=== PATIENT | male | born 1955 | race Caucasian/White ===

== ENCOUNTER 2018-11-01 06:06 | Day surgery (SDC) | payer MEDICARE, OTHER ==
[~2018-11-01] VITALS: Ht 170.2 cm; Wt 85.9 kg
[~2018-11-01 06:06] MED LIST: ALBU90OI INH; ALLO300 PO; Altoprev20 MG PO; CENTRUM SILVER1 EAC1 PO; Cialis20 MG; FENO160; FENO160 PO; HYDACE5 PO; HYDCHL25 PO; Hytrin1 MG PO; IBUP600 PO; LOSA25; LOSARTAN-HCTZ PO; LOSHYD; LOSHYD PO; LOVA20 PO; METF500; METF500 PO; METF500C PO; NAPR500EC PO; OMEG1CAP30 PO; OMEPRAZOLE MAGN20 MG PO; PREN-16 PO; TRAM50; TRAM50 PO; UBID100 PO; Ultram50 MG PO
[2018-11-01] MEDS ORDERED: AMLO5 PO (07:11)
--- NOTE | 2018-11-01 07:26 | NUR ---
Ambulatory in Day Surgery History, Chart, Medications and Allergies reviewed before start of procedure.Patient confirms NPO status and agrees with scheduled surgery. Lungs clear T/O to Auscultation. Patient reports completing Chlorhexadine shower X2 prior to admission to hospital.Surgical site prepped with 2% Chlorhexidine cloth wipe.
--- NOTE | 2018-11-01 08:15 | NUR ---
11/01/18 0815 Maryana Mejia PT VOIDED PRIOR TO COMING TO OR
--- NOTE | 2018-11-01 18:00 | NUR ---
SHIFT SUMMARY PATIENT UP WITH PT THIS AFTERNOON AND TO CHAIR. STATES PAIN IS CONTROLLED WITH PO AND IV PAIN MED. TOLERATING PO. DRESSING D&I. CIRC CHECKS WNL. NO C/O AT THIS TIME.
--- NOTE | 2018-11-02 05:09 | NUR ---
shift summary: vss, no acute changes, no n/v, PO intake with ADA diet tolerated well. pt voided >600 ml clear yellow urine in urinal. pt reports pain down to 3-4/10 following analgesia per sep. pt ambulated in hallway >200 ft with gait belt and fww with standby assist. operative knee with full sensation, good capillary refill, dressing intact with minimal swelling. CBG at 259 at HS, medicated per sep. PT x 1, will complete PT today. Pt states his therapy literacy coach will arrive this AM
[2018-11-02 06:22] LABS: Anion Gap 6 mmol/L (6-16); BASOPHILS ABSOLUTE AUTO 0.02 K/mm3 (0.00-0.23); BASOPHILS PERCENT AUTO 0 % (0-2); Blood Urea Nitrogen 18 mg/dL (8-24); Bun/Creatinine Ratio 21.7 (12.0-20.0); CO2, Blood 29 mmol/L (21-32); Calcium, Blood 9.8 mg/dL (8.5-10.1); Chloride, Blood 105 mmol/L (98-108); Creatinine, Blood 0.83 mg/dL (0.60-1.20); EOSINOPHILS ABSOLUTE AUTO 0.02 K/mm3 (0.00-0.68); EOSINOPHILS PERCENT AUTO 0 % (0-6); Glomerular Filtration Rate >60 (60-); Glucose, Blood 138 mg/dL (70-99); Hematocrit 33.2 % (37.0-53.0); Hemoglobin 11.1 g/dL (13.5-17.5); IMMATURE GRAN ABSOLUTE AUTO 0.07 K/mm3 (0.00-0.10); IMMATURE GRAN PERCENT AUTO 1 % (0-1); LYMPHOCYTES ABSOLUTE AUTO 1.34 K/mm3 (0.84-5.20); LYMPHOCYTES PERCENT AUTO 10 % (21-46); MONOCYTES ABSOLUTE AUTO 0.97 K/mm3 (0.16-1.47); MONOCYTES PERCENT AUTO 8 % (4-13); Mean Corpuscular HGB 30.8 pg (26.0-34.0); Mean Corpuscular HGB Conc 33.4 g/dL (31.5-36.5); Mean Corpuscular Volume 92 fL (80-100); Mean Platelet Volume 9.4 fL (9.1-12.4); NEUTROPHILS ABSOLUTE AUTO 10.43 K/mm3 (1.96-9.15); NEUTROPHILS PERCENT AUTO 81 % (41-73); Platelet Count 251 K/mm3 (150-400); RDW Coefficient Variation 13.8 % (11.7-14.2); Sodium, Blood 140 mmol/L (136-145); White Blood Cell Count 12.85 K/mm3 (4.00-11.30)
[2018-11-02] MEDS ORDERED: LO-DOSE ASPIRIN81 MG PO (12:11)
[2018-11-02] MEDS ORDERED: Percocet 5-3251 EACH PO (12:14)
--- NOTE | 2018-11-02 13:40 | NUR ---
PATIENT D/C'D HOME AT THIS TIME WITH FAMILY; STATES UNDERSTANDING OF MEDS, WOUND CARE, ACTIVITY, OP PT, F/U APPT, ETC. PATIENT STATES PAIN WELL CONTROLLED WITH PO MEDS. TOLERATING PO. NO ACUTE CHANGES OR C/O.
== END 2018-11-02 13:43 | disposition home or self-care (01) ==
LOC: ORSCMMR 06:06 → ORD 07:30 → ORSCMMR 07:30 → SURS 10:39 → ORSCMMR 11-02 13:43
PROVIDERS: Orthopaedic Surgery
PROC: 0SRC0JA Replacement of Right Knee Joint with Synthetic Substitute, Uncemented, Open Approach (ICD-10-PCS; principal; 2018-11-01 07:30)
DX: M17.11 Unilateral primary osteoarthritis, right knee (principal); Z01.818 Encounter for other preprocedural examination; E11.40 Type 2 diabetes mellitus with diabetic neuropathy, unspecified; I10 Essential (primary) hypertension; Z79.899 Other long term (current) drug therapy
CPT/HCPCS: 36415; 73560-RT; 80048; 82947; 83036; 85025; 86850; 86900; 86901; 88300; 97110; 97116; 97162; C1776; J0171; J0690; J0735; J1100; J1170; J1815; J1885; J2250; J2370; J2405; J2704; J2765; J2795; J3010; J7120

== ENCOUNTER 2022-05-18 10:25 | Inpatient (IN) | payer MEDICARE, OTHER ==
[~2022-05-18] VITALS: Ht 167.6 cm; Wt 79.4 kg
[~2022-05-18 10:25] MED LIST changes: +AMLO5 PO; +FLONASE ALLERG9.9 M2; +GABA300 PO; +LO-DOSE ASPIRIN81 MG PO; +LOSA50 PO; +Lovastatin20 MG PO; +Percocet 5-3251 EACH PO
[2022-05-18 11:02] LABS: BASOPHILS ABSOLUTE AUTO 0.04 K/mm3 (0.00-0.23); BASOPHILS PERCENT AUTO 1 % (0-2); EOSINOPHILS ABSOLUTE AUTO 0.03 K/mm3 (0.00-0.68); EOSINOPHILS PERCENT AUTO 0 % (0-6); Hematocrit 38.2 % (37.0-53.0); Hemoglobin 12.7 g/dL (13.5-17.5); IMMATURE GRAN PERCENT AUTO 1 % (0-1); LYMPHOCYTES ABSOLUTE AUTO 0.67 K/mm3 (0.84-5.20); LYMPHOCYTES PERCENT AUTO 8 % (21-46); MONOCYTES ABSOLUTE AUTO 0.29 K/mm3 (0.16-1.47); MONOCYTES PERCENT AUTO 4 % (4-13); Mean Corpuscular HGB 31.5 pg (26.0-34.0); Mean Corpuscular HGB Conc 33.2 g/dL (31.5-36.5); Mean Corpuscular Volume 95 fL (80-100); Mean Platelet Volume 9.1 fL (9.1-12.4); NEUTROPHILS ABSOLUTE AUTO 6.97 K/mm3 (1.96-9.15); NEUTROPHILS PERCENT AUTO 86 % (41-73); Platelet Count 235 K/mm3 (150-400); RDW Standard Deviation 52.5 fL (35.1-46.3); Red Blood Cell Count 4.03 M/mm3 (4.30-5.90)
[2022-05-18 11:24] LABS: Alanine Aminotransfer (ALT/SGP 58 U/L (12-78); Albumin, Blood 4.1 g/dL (3.4-5.0); Albumin/Globulin Ratio 1.2 (0.8-1.8); Alk Phos 47 U/L (50-136); Anion Gap 8 mmol/L (6-16); Aspartate Aminotrans (AST/SGOT 46 U/L (12-37); Bilirubin, Total 0.3 mg/dL (0.1-1.0); Blood Urea Nitrogen 34 mg/dL (8-24); Bun/Creatinine Ratio 27.2 (12.0-20.0); CO2, Blood 26 mmol/L (21-32); Calcium, Blood 9.7 mg/dL (8.5-10.1); Chloride, Blood 107 mmol/L (98-108); Creatinine, Blood 1.25 mg/dL (0.60-1.20); Ethanol (Alcohol), Blood, Med <3 mg/dL; Globulin, Blood 3.4 g/dL (2.2-4.0); Glomerular Filtration Rate 63 (60-); Glucose, Blood 126 mg/dL (70-99); Potassium, Blood 4.7 mmol/L (3.5-5.5); Sodium, Blood 141 mmol/L (136-145); Total Protein, Blood 7.5 g/dL (6.4-8.2)
[2022-05-18 12:02] LABS: Influenza A, PCR NEGATIVE (NEGATIVE); Influenza B, PCR NEGATIVE (NEGATIVE); Resp Syncytial Virus, PCR NEGATIVE (NEGATIVE); SARS-Cov-2 (COVID-19) PCR, MMC NEGATIVE (NEGATIVE)
[2022-05-18 15:08] LABS: Source, Urine Foley catheter
[2022-05-18 15:14] LABS: Appearance, Urine Clear (Clear); Bilirubin, Urine Neg (Neg); Blood, Urine Neg (Neg); Color, Urine Yellow (P-Yellow); Glucose Qualitative, Urine Neg (Neg); Ketones, Urine Neg (Neg); Leukocyte Esterase, Urine Neg (Neg); Nitrite, Urine Neg (Neg); Protein, Urine 1+ (Neg); Specific Gravity, Urine 1.025 (1.003-1.022); Urobilinogen, Urine NORM (Normal)
[2022-05-18] MEDS ORDERED: LOVASTATIN20 MG PO (15:55)
[2022-05-18] MEDS ORDERED: NEURONTIN300 MG PO (15:55)
[2022-05-18] MEDS ORDERED: IRBESARTAN150 M3 PO (15:55)
[2022-05-18] MEDS ORDERED: [UNRECOGNIZED DRUG - SUPPLY] MC (15:55)
--- NOTE | 2022-05-19 04:09 | NUR ---
SHIFT SUMMARY: Pt A/Ox4 and call light appropriate this shift. Pt noted he did have some SOB this shift but stated "it's nothing new." Oxygen was weaned down to 1L NC overnight. Lung sounds where wheezy throughout the bases, offered PRN neb but patient declined till the morning. Oniell remains patent and has large output. No c/o nausea this shift. Able to ambulate SBA.
--- NOTE | 2022-05-19 17:53 | NUR ---
SHIFT SUMMARY PT A/O X4; PLEASANT AND COOPERATIVE WITH CARE. REPORTS THAT HE IS FEELING MUCH BETTER TODAY BUT STILL HAS PERIODIC CHEST TIGHTNESS. BREATHING TREATMENTS PRN PER RT. LISE DC'D AND PT WEANED OFF O2. VSS.
--- NOTE | 2022-05-20 04:17 | NUR ---
SHIFT SUMMARY: Pt A/Ox4 and call light appropriate. Overnight pt noted he still felt SOB but his oxygen remained >92% on RA and lung sounds were less wheezy compared to the previous night. IV solumedrol given per SEP. Pt has voided multiple times this shift post hines removal. States he "doesn't feel like i'm retaining anymore." He was able to transfer independantly in the room. Pt hopeful to d/c soon.
[2022-05-20 06:59] LABS: Bun/Creatinine Ratio 32.3 (12.0-20.0); Calcium, Blood 9.7 mg/dL (8.5-10.1); Creatinine, Blood 0.78 mg/dL (0.60-1.20); Potassium, Blood 4.2 mmol/L (3.5-5.5); Thyroid Stimulating Hormone 0.673 uIU/mL (0.360-4.800)
--- NOTE | 2022-05-20 18:15 | NUR ---
SHIFT SUMMARY PT A/O X4; PLEASANT AND COOPERATIVE WITH CARE. PT HAS INCREASED DYSPNEA AND WHEEZING THIS AM WHICH HAS SINCE SUBSIDED WITH SCHEDULED BREATHING TREATMENTS. PT REPORTS FEELING MUCH BETTER AND IS UP WALKING FREQUENTLY. VSS. NO OTHER ACUTE CHANGES THIS SHIFT AND PT SEEMS TO BE IMPROVING.
--- NOTE | 2022-05-21 05:04 | NUR ---
SHIFT SUMMARY: Pt had no acute changes overnight. stated he was "feeling much better" and feels ready to go home. Overnight he remained on RA. Lung sounds were slightly wheezy in the lower bases. RT gave him scheduled breathing tx. Pt denied any pain.
--- NOTE | 2022-05-21 08:16 | NUR ---
pt sitting up on the side of the bed, awake a/ox4, pleasant and cooperative with care, follows commands well, denies pain, states he's breathing better, no complaints, states he might go home today, lungs are dim in t/o with exp wheezing that mostly cleared with cough, reports not productive, on r/a, resp even and unlabored, hrr, no edema noted, ppp+2, cap refill <3sec, vs stable, afebrile, iv to lac is clear and patent, s.l. btx4, abd flat soft nontender, voids without diff, skin c/w/d, maew, up ad renato in room, perkam call light in reach.
[2022-05-21] MEDS ORDERED: Flomax0.4 MG PO (11:26)
[2022-05-21] MEDS ORDERED: ALBU2.5V5 INH (11:26)
[2022-05-21] MEDS ORDERED: AIRDUO RESPICL1 EAC5 INH (11:27)
[2022-05-21] MEDS ORDERED: ALBU90OI INH (11:28)
[2022-05-21] MEDS ORDERED: PRED20 PO (11:29)
--- NOTE | 2022-05-21 12:48 | NUR ---
Pt has been discharged to home, went over discharge instructions with him, he verbalized understanding, meds faxed to [facility], iv removed intact, left via wheelchair with grand daughter her to pick him up. he has all his belongings.
== END 2022-05-21 13:17 | disposition home or self-care (01) | DRG 189 ==
LOC: ER 10:25 → MEDS 15:46
PROVIDERS: Emergency Medicine; Student in an Organized Health Care Education/Training Program; ADMIT Internal Medicine
DX: J96.01 Acute respiratory failure with hypoxia (principal); G92.9 Unspecified toxic encephalopathy; J44.1 Chronic obstructive pulmonary disease with (acute) exacerbation; N17.9 Acute kidney failure, unspecified; I10 Essential (primary) hypertension; Z20.822 Contact with and (suspected) exposure to COVID-19; E11.9 Type 2 diabetes mellitus without complications; Z96.642 Presence of left artificial hip joint; R33.9 Retention of urine, unspecified; R27.0 Ataxia, unspecified; N40.1 Benign prostatic hyperplasia with lower urinary tract symptoms; R33.8 Other retention of urine; I25.10 Atherosclerotic heart disease of native coronary artery without angina pectoris; E86.0 Dehydration; E78.5 Hyperlipidemia, unspecified; J45.20 Mild intermittent asthma, uncomplicated; Z96.651 Presence of right artificial knee joint; Z88.1 Allergy status to other antibiotic agents; Z88.0 Allergy status to penicillin; Z88.8 Allergy status to other drugs, medicaments and biological substances; Z79.84 Long term (current) use of oral hypoglycemic drugs; Z79.899 Other long term (current) drug therapy; Z98.890 Other specified postprocedural states; Z87.891 Personal history of nicotine dependence; Z79.82 Long term (current) use of aspirin
CPT/HCPCS: 0241U; 36415; 51702; 51798; 70450; 71045; 71260; 80048; 80053; 82947; 83880; 84443; 84484; 85025; 93005; 93010; 93306; 94640; 94644; 94664; 94760; 97116; 97161; A9270; G0480; J1650; J2405; J2930; J7030; J7512; Q9967

== ENCOUNTER → 2022-05-30 | Outpatient (CLI) | payer MEDICARE, OTHER ==
[~2022-05-30] MED LIST changes: +AIRDUO RESPICL1 EAC5 INH; +ALBU2.5V5 INH; +Flomax0.4 MG PO; +IRBESARTAN150 M3 PO; +LOVASTATIN20 MG PO; +NEURONTIN300 MG PO; +PRED20 PO; +[UNRECOGNIZED DRUG - SUPPLY] MC
[2022-05-30 15:44] LABS: BASOPHILS ABSOLUTE AUTO 0.07 K/mm3 (0.00-0.23); BASOPHILS PERCENT AUTO 1 % (0-2); EOSINOPHILS ABSOLUTE AUTO 0.03 K/mm3 (0.00-0.68); EOSINOPHILS PERCENT AUTO 0 % (0-6); Hematocrit 41.4 % (37.0-53.0); Hemoglobin 13.8 g/dL (13.5-17.5); IMMATURE GRAN PERCENT AUTO 5 % (0-1); LYMPHOCYTES ABSOLUTE AUTO 1.27 K/mm3 (0.84-5.20); LYMPHOCYTES PERCENT AUTO 11 % (21-46); MONOCYTES ABSOLUTE AUTO 0.46 K/mm3 (0.16-1.47); MONOCYTES PERCENT AUTO 4 % (4-13); Mean Corpuscular HGB Conc 33.3 g/dL (31.5-36.5); Mean Corpuscular Volume 93 fL (80-100); Mean Platelet Volume 9.8 fL (9.1-12.4); NEUTROPHILS ABSOLUTE AUTO 9.39 K/mm3 (1.96-9.15); NEUTROPHILS PERCENT AUTO 79 % (41-73); Platelet Count 286 K/mm3 (150-400); RDW Coefficient Variation 14.9 % (11.7-14.2); Red Blood Cell Count 4.45 M/mm3 (4.30-5.90); White Blood Cell Count 11.82 K/mm3 (4.00-11.30)
[2022-05-30 16:53] LABS: Albumin, Blood 3.6 g/dL (3.4-5.0); Albumin/Globulin Ratio 1.2 (0.8-1.8); Bilirubin, Total 0.2 mg/dL (0.1-1.0); Bun/Creatinine Ratio 40.5 (12.0-20.0); Creatinine, Blood 0.69 mg/dL (0.60-1.20); Globulin, Blood 2.9 g/dL (2.2-4.0); Potassium, Blood 4.7 mmol/L (3.5-5.5); Total Protein, Blood 6.5 g/dL (6.4-8.2)
== END | disposition home or self-care (01) ==
LOC: LAB SHORT 14:54 → LAB 14:54
PROVIDERS: Nurse Practitioner Family
DX: I10 Essential (primary) hypertension (principal)
CPT/HCPCS: 80053; 85025

== ENCOUNTER → 2024-10-22 | Outpatient (CLI) | payer MEDICARE, OTHER | LOC: LAB SHORT 18:14 → LAB 18:14 | DX: R79.89 Other specified abnormal findings of blood chemistry (principal) | CPT/HCPCS: 84403 ==